=== PATIENT | female | born 1980 | race Caucasian/White ===

== ENCOUNTER 2024-03-22 18:12 | Emergency (ER) | payer OTHER, SELFPAY ==
[2024-03-22 18:14] VITALS: BP 161/106
--- NOTE | 2024-03-22 18:21 | ED.PDOC.TRB ---
ED Provider Triage
-
Patient seen by provider in Triage?: Seen in Triage
A medical screening examination has been initiated by a qualified medical provider. Based on the assessment performed at this time, it has been determined that an emergent medical condition may exist and the patient has been informed that further
medical evaluation and possible additional diagnostic testing may be needed.
HPI: This is a medical evaluation conducted in person to initiate diagnostic evaluation and provide initial therapeutics. Please see further documentation by the treating clinician.
GENERAL: Alert ,tearful
EYE: No visual abnormalities.
NECK: Trachea midline
ENT: No visible abnormalities.
LUNGS: No acute respiratory distress
NEUROLOGICAL: Alert and oriented
SKIN: no visible lesions.
MUSCULOSKELETAL: Moving extremities normally
PSYCH: Normal and appropriate interaction.
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 Here
she is mildly tachycardic. Mildly uncomfortable denies any significant diffuse abdominal pain. Plan for ultrasound and labs for further assessment.
[2024-03-22 18:30] LABS: % Basophils 0.5 % (0-2); % Eosinophils 2.6 % (0-6); % Immature Granulocytes 0.4 % (0-0.5); % Lymphocytes 27.5 % (20.5-51.1); Absolute Basophils 0.1 10^3/uL (0-0.2); Absolute Eosinophils 0.2 10^3/uL (0-0.7); Absolute Lymphocytes 2.6 10^3/uL (1.2-3.4); Absolute Monocytes 0.7 10^3/uL (0.1-0.6); Absolute Neutrophils 5.8 10^3/uL (1.4-6.5); Hematocrit 37.6 % (37.0-47.0); Hemoglobin 12.3 g/dL (12.0-16.0); Mean Corp Hgb Conc. 32.7 g/dL (33.0-37.0); Mean Corpuscular Hgb 26.9 pg (27.0-31.0); Mean Corpuscular Volume 82.3 fL (81.0-99.0); Mean Platelet Volume 11.9 fL (7.4-10.4); Nucleated Red Blood Cells % 0 %; Platelet Count 314 10^3/uL (130-400); Red Blood Cell Count 4.57 10^6/uL (4.20-5.40); Red Cell Dist. Width 16.3 % (11.5-14.5); White Blood Cell Count 9.4 10^3/uL (4.8-10.8)
[2024-03-22 18:50] LABS: ALT (SGPT) 11 U/L (0-35); AST (SGOT) 19 U/L (14-36); Albumin 4.3 g/dl (3.5-5.0); Alkaline Phosphatase 83 U/L (38-126); Blood Urea Nitrogen 7 mg/dl (7-17); Calcium 9.4 mg/dl (8.4-10.2); Carbon Dioxide 22 mmol/L (22-30); Glucose 100 mg/dl (70-99); Total Bilirubin 0.7 mg/dl (0.2-1.3); Total Protein 6.9 g/dl (6.3-8.2); eGFR > 60.00
[2024-03-22 19:10] LABS: Chloride 105 mmol/L (98-107); Potassium 3.8 mmol/L (3.5-5.1); Sodium 140 mmol/L (135-145)
[2024-03-22 21:34] VITALS: BP 129/84
--- NOTE | 2024-03-22 22:08 | ED.GENMED ---
History of Present Illness
General
Chief Complaint: Problems
Source: patient and family
Time Seen by Provider: 03/22/24 19:09
History of Present Illness
History of Present Illness:
This is a 43-year-old female who suspect she is about 9 weeks . Patient states that her last period was around January 12. Today she developed left lower quadrant abdominal pain and bleeding. She has had 10 previous pregnancies and has 10
previous children. This is her 11th . She has never had a miscarriage or ectopic. Patient states she has been concerned because of the pain and bleeding. Currently her pain is actually improved however. She states that when she emptied
her bladder after ultrasound her pain is improved. No lightheadedness or syncope.
Past History
Past History
ED Past Medical History: Other (Migraines, )
ED Past Surgical History: None
Social History
Tobacco: Non-smoker
Alcohol: None
Drug: None
Personal: Single
Living: with family
Employment: Not employed
Phy Exam
Physical Exam
Physical Exam:
CONSTITUTIONAL Vital signs reviewed, Patient alert and oriented to person, place and time. Well-appearing
HEAD atraumatic, normocephalic.
EYES eyelids normal to inspection, Extraocular muscles intact, Conjunctiva normal, Sclera normal.
NECK normal range of motion, Trachea midline, no jugular venous distention.
RESP no respiratory distress
Abdomen mild left lower quadrant tenderness, soft, no peritoneal findings, no rebound
UPPER EXTREMITY Gross Range of motion normal, gross motor strength normal
LOWER EXTREMITY Gross range of motion normal, Gross motor strength normal
NEURO Speech normal, No focal motor deficits include, Dimitry coma scale 15, Memory normal, Cranial Nerves intact to screening exam.
SKIN Skin warm, dry, and normal in color.
PSYCHIATRIC Patient oriented to person place and time, Normal affect.
Course
Orders/Labs/Results
Orders:
Orders
03/22/24 18:20
US 1st Trimester Urgent
Comment:
Reason For Exam: pain bleeding 9 weeks by dates
03/22/24 18:23
Blood Group&Type Urgent
Beta HCG Quantitative Urgent
Is this a screen?: No
Complete Blood Count/With Diff Urgent
Comprehensive Metabolic Panel Urgent
Abnormal Lab Results
03/22/24
18:23
MCH 26.9 L pg
(27.0-31.0)
MCHC 32.7 L g/dL
(33.0-37.0)
RDW 16.3 H %
(11.5-14.5)
MPV 11.9 H fL
(7.4-10.4)
Absolute Monos (auto) 0.7 H 10^3/uL
(0.1-0.6)
Glucose 100 H mg/dl
(70-99)
03/22/24 18:23
03/22/24 18:23
Vital Signs
Initial and Last Documented VS:
Initial Vital Signs
Pulse Resp BP Pulse Ox
97 18 161/106 100
03/22/24 18:14 03/22/24 18:14 03/22/24 18:14 03/22/24 18:14
Last Documented Vital Signs
Pulse Resp BP Pulse Ox
108 20 129/84 97
03/22/24 21:34 03/22/24 21:34 03/22/24 21:34 03/22/24 21:34
Information
Weeks gestation: N/A
Location: N/A
MDM/Problems Addressed
MDM/Problems Addressed:
Suspected miscarriage, rule out ectopic
*Radiology
Radiology exam reviewed: radiology read reviewed
*Pulse Oximetry
Patient hypoxic: no
*Critical Care Note
Total Time (30-74mins, 75-104mins- exclusive of procedures): Not Applicable
Data Reviewed
Source: patient and family
Prescriptions/Medications Considered But Not Given:
Consider methotrexate but suspect possible miscarriage.
Patient Management
Discussion with other providers: Signals Intelligence Analyst (Case was discussed with OB Dr. Liang)
Escalation/DeEscalation of care consider admission/obs:
43-year-old female presents with bleeding. This is her 11th . Shunt noted. Given her beta clearly a failed but question whether this is just early miscarriage versus ectopic. I suspect miscarriage but discussed with OB who
will arrange outpatient repeat beta. She certainly does not have a ruptured ectopic. She is well-appearing otherwise.
ED Attending Note
-
Portions of this chart may have been created with voice recognition software.� Occasional wrong word or��sound alike� substitutions may have occurred due to the inherent limitations of voice recognition software.
Discharge Plan
Departure
Patient Disposition: Home (Routine Discharge)
Date of Disposition: 03/22/24
Time of Disposition: 22:08
Patient with high blood pressure during this ER visit?: No
Discharge Problem:
failed , suspected miscarriage
Instructions: Miscarriage (DC)
Prescriptions:
No Action
PNV cmb#95-ferrous fumarate-FA [] 1 EACH tablet
1 ea PO DAILY
acetaminophen 325 mg Tablet
650 mg PO Q4HPRN PRN (Reason: mild pain) Qty: 0 0RF
sennosides-docusate sodium [Senna Plus] 8.6-50 mg Tablet
1 tab PO DAILYPRN PRN (Reason: constipation) Qty: 0 0RF
ibuprofen 600 mg Tablet
600 mg PO Q6HPRN PRN (Reason: cramps) Qty: 45 0RF
Referrals:
Mercedes Vasquez MD [Family Provider] -
Activity Restrictions/Additional Instructions:
I suspect you are having a miscarriage but you still need to be ruled out that it is a nonruptured ectopic. Please call your OB tomorrow to arrange repeat blood work on Wednesday. Return immediately for worsening pain, worsening bleeding,
lightheadedness, or any other concerns
Interventions
Interventions:
*Risk Screen - Suicide Last Done: 03/22/24 18:14
*Neglect/Abuse Screening Last Done: 03/22/24 18:14
*ED COVID-19 Vaccine History Last Done: 03/22/24 18:14
ED-Female Genitourinary Assessment Last Done: 03/22/24 19:23
Discharge Date and Time
Print Language: VIET[place]ESE
[2024-03-22 22:30] LABS: Urine Albumin Trace (Neg - Trace); Urine Bilirubin Negative (Negative); Urine Character Clear (Clear); Urine Color Pink; Urine Glucose Negative (Negative); Urine Ketone Negative (Negative); Urine Leukocyte 2+ (Negative); Urine Nitrite Negative (Negative); Urine Occult Blood 4+ (Negative); Urine Specific Gravity 1.005 (<1.030); Urine Urobilinogen Negative (Neg - 1+)
[2024-03-22 22:41] LABS: Urine Bacteria Few (Negative); Urine White Cell 0-2 /HPF (0-5)
[2024-03-22 22:42] LABS: Urine Red Blood Cell 90-100 /HPF (0-2)
== END 2024-03-22 22:34 | disposition home or self-care (01) ==
LOC: EMR 18:12
PROVIDERS: Physician Assistant; EMERGENCY PHYSICIAN Emergency Medicine; FAMILY PHYSICIAN Family Medicine
DX: O20.9 Hemorrhage in early pregnancy, unspecified (principal); Z3A.09 9 weeks gestation of pregnancy
CPT/HCPCS: 99284; 76801; 80053; 81003; 81015; 84702; 85025; 86900; 86901; 87086

== ENCOUNTER → 2024-03-24 16:07 | Outpatient (REF) | payer OTHER, SELFPAY ==
[2024-03-24 16:32] LABS: Hematocrit 37.9 % (37.0-47.0); Hemoglobin 12.1 g/dL (12.0-16.0)
== END ==
LOC: REG 16:07
PROVIDERS: ATTENDING PHYSICIAN Obstetrics & Gynecology; FAMILY PHYSICIAN Family Medicine
DX: O20.0 Threatened abortion (principal)
CPT/HCPCS: 36415; 84702; 85014; 85018

== ENCOUNTER → 2024-03-30 16:27 | Outpatient (REF) | payer OTHER, SELFPAY | LOC: RAD 16:27 | PROVIDERS: ATTENDING PHYSICIAN Obstetrics & Gynecology; FAMILY PHYSICIAN Family Medicine | DX: O00.90 Unspecified ectopic pregnancy without intrauterine pregnancy (principal) | CPT/HCPCS: 76801 ==

== ENCOUNTER → 2025-03-01 15:49 | Outpatient (REF) | payer OTHER, SELFPAY | LOC: PNTC 15:49 | PROVIDERS: ATTENDING PHYSICIAN Obstetrics & Gynecology | DX: O09.529 Supervision of elderly multigravida, unspecified trimester (principal) | CPT/HCPCS: 76816 ==

== ENCOUNTER → 2025-04-04 14:32 | Outpatient (REF) | payer OTHER, SELFPAY | LOC: PNTC 14:32 | PROVIDERS: ATTENDING PHYSICIAN Obstetrics & Gynecology | DX: O09.529 Supervision of elderly multigravida, unspecified trimester (principal) | CPT/HCPCS: 76816 ==

== ENCOUNTER 2025-05-03 19:03 | Observation (INO) | payer OTHER, SELFPAY ==
[2025-05-03 19:14] VITALS: BP 134/76; BMI 46.4
[2025-05-03 21:03] LABS: Hematocrit 41.2 % (37.0-47.0); Hemoglobin 14.4 g/dL (12.0-16.0); Mean Corp Hgb Conc. 35.0 g/dL (33.0-37.0); Mean Corpuscular Volume 89.0 fL (81.0-99.0); Platelet Count 252 10^3/uL (130-400); Red Cell Dist. Width 14.1 % (11.5-14.5)
== END 2025-05-04 13:00 | disposition home or self-care (01) ==
LOC: LDRP 19:03
PROVIDERS: ADMITTING PHYSICIAN Obstetrics & Gynecology; ATTENDING PHYSICIAN Obstetrics & Gynecology; PRIMARYCARE PHYSICIAN Family Medicine
DX: O36.8330 Maternal care for abnormalities of the fetal heart rate or rhythm, third trimester, not applicable or unspecified (principal); O09.523 Supervision of elderly multigravida, third trimester; Z3A.35 35 weeks gestation of pregnancy; O99.213 Obesity complicating pregnancy, third trimester; O09.43 Supervision of pregnancy with grand multiparity, third trimester; Z36.89 Encounter for other specified antenatal screening; Z87.820 Personal history of traumatic brain injury
CPT/HCPCS: 76818; 76819; 85027; 86850; 86900; 86901; G0378

== ENCOUNTER → 2025-05-10 16:36 | Outpatient (REF) | payer OTHER, SELFPAY | LOC: PNTC 16:36 | PROVIDERS: ATTENDING PHYSICIAN Obstetrics & Gynecology | DX: O09.523 Supervision of elderly multigravida, third trimester (principal); O99.213 Obesity complicating pregnancy, third trimester; O09.43 Supervision of pregnancy with grand multiparity, third trimester | CPT/HCPCS: 59025 ==

== ENCOUNTER → 2025-05-17 16:49 | Outpatient (REF) | payer OTHER, SELFPAY | LOC: PNTC 16:49 | PROVIDERS: ATTENDING PHYSICIAN Obstetrics & Gynecology; PRIMARYCARE PHYSICIAN Family Medicine | DX: O09.523 Supervision of elderly multigravida, third trimester (principal); O99.213 Obesity complicating pregnancy, third trimester; O09.43 Supervision of pregnancy with grand multiparity, third trimester; O36.8330 Maternal care for abnormalities of the fetal heart rate or rhythm, third trimester, not applicable or unspecified | CPT/HCPCS: 59025 ==

== ENCOUNTER → 2025-05-24 16:28 | Outpatient (REF) | payer OTHER, SELFPAY | LOC: PNTC 16:28 | PROVIDERS: ATTENDING PHYSICIAN Student in an Organized Health Care Education/Training Program; PRIMARYCARE PHYSICIAN Family Medicine | DX: O09.523 Supervision of elderly multigravida, third trimester (principal); O99.213 Obesity complicating pregnancy, third trimester; O09.43 Supervision of pregnancy with grand multiparity, third trimester | CPT/HCPCS: 59025 ==

== ENCOUNTER → 2025-05-31 16:45 | Outpatient (REF) | payer OTHER, SELFPAY | LOC: PNTC 16:45 | PROVIDERS: ATTENDING PHYSICIAN Obstetrics & Gynecology; PRIMARYCARE PHYSICIAN Family Medicine | DX: O09.523 Supervision of elderly multigravida, third trimester (principal); O99.213 Obesity complicating pregnancy, third trimester; O09.43 Supervision of pregnancy with grand multiparity, third trimester | CPT/HCPCS: 59025 ==

== ENCOUNTER 2025-06-01 06:55 | Inpatient (IN) | payer OTHER, SELFPAY ==
[2025-06-01 07:11] VITALS: BP 132/85; BMI 46.4
[2025-06-01 07:54] LABS: Hematocrit 40.5 % (37.0-47.0); Hemoglobin 14.0 g/dL (12.0-16.0); Mean Corp Hgb Conc. 34.6 g/dL (33.0-37.0); Mean Corpuscular Volume 89.8 fL (81.0-99.0); Platelet Count 223 10^3/uL (130-400); Red Cell Dist. Width 13.7 % (11.5-14.5)
[2025-06-01] MEDS: LR 1000 IV ×2 (07:57→09:10)
[2025-06-01] MEDS: TYLENOL 975 MG PO (08:09)
[2025-06-01] MEDS: BICITRA 30 ML PO (08:10)
[2025-06-01] MEDS: ANCEF 15 MG IV (11:52)
[2025-06-01] MEDS: TORADOL 15 MG IV (14:38)
[2025-06-01] MEDS: PITOCIN 30 UNITS/NSS 500 ML IV (16:24)
[2025-06-01] MEDS: COLACE 100 MG PO (20:34)
[2025-06-01] MEDS: TYLENOL 650 MG PO (20:34)
[2025-06-02] MEDS: MOTRIN 600 MG PO ×3 (01:48→15:34)
[2025-06-02] MEDS: TYLENOL 650 MG PO ×2 (04:00→17:06)
[2025-06-02 04:27] LABS: Hematocrit 34.3 % (37.0-47.0); Hemoglobin 11.1 g/dL (12.0-16.0); Mean Corp Hgb Conc. 32.4 g/dL (33.0-37.0); Mean Corpuscular Volume 94.8 fL (81.0-99.0); Platelet Count 172 10^3/uL (130-400); Red Cell Dist. Width 13.9 % (11.5-14.5)
[2025-06-02] MEDS: COLACE 100 MG PO ×2 (08:08→20:41)
[2025-06-02] MEDS: PRENATAL PLUS 1 TABLET PO (08:08)
[2025-06-03] MEDS: TYLENOL 650 MG PO ×3 (00:29→11:48)
[2025-06-03] MEDS: MOTRIN 600 MG PO ×3 (00:30→11:48)
--- NOTE | 2025-06-03 06:53 | W.PN.ANS.POP ---
Anesthesia Post Operative
- Anesthesia Post Op Note
Vital Signs Stable-See Nursing Note: Yes
Airway Patent: Yes
Adequate Pain Control: Yes
Change in Mental Status: No
Current Postoperative Nausea & Vomiting: No
Anesthesia Complications: No
General Anesthetic Recall: No
Unplanned Admission: No
Post Op Hydration Adequate: Yes
[2025-06-03] MEDS: PRENATAL PLUS 1 TABLET PO (08:01)
[2025-06-03] MEDS: COLACE 100 MG PO (08:01)
--- NOTE | 2025-06-03 08:20 | W.DS.TRANS ---
DC Summary - Respiratory Scientist
-
Discharge Instructions:
Discharge Diagnosis/Procedures rcs
Instructions:
Stand-Alone Forms: LDRP Delivery
Changes to Home Medications: No
Discharge Medications:
DC Medications w/original date entered in [facility]
vit no.95-ferrous fumarate 28 mg-folic acid 800 mcg tablet () 1 ea PO DAILY 08/15/21
ibuprofen 600 mg tablet 600 mg PO Q6HPRN PRN cramps #90 tabs 06/03/25
Home Medication Changes
Pending Results: No
Total time spent discharging patient (in min): 15
[2025-06-05 11:44] LABS: Syphilis/T. pallidum Ab Reflex Negative (Negative)
== END 2025-06-03 13:50 | disposition home or self-care (01) | DRG 788 ==
LOC: LDRP 06:55
PROVIDERS: ADMITTING PHYSICIAN Obstetrics & Gynecology
PROC: 10D00Z1 Extraction of Products of Conception, Low, Open Approach (ICD-10-PCS; 2025-06-01)
DX: O32.8XX0 Maternal care for other malpresentation of fetus, not applicable or unspecified (principal); Z3A.39 39 weeks gestation of pregnancy; Z37.0 Single live birth; O99.214 Obesity complicating childbirth; E66.813 Obesity, class 3; O99.344 Other mental disorders complicating childbirth; F32.A Depression, unspecified; F41.9 Anxiety disorder, unspecified; O34.211 Maternal care for low transverse scar from previous cesarean delivery; Z87.820 Personal history of traumatic brain injury
CPT/HCPCS: 85027; 86780; 86850; 86900; 86901; 86920; 88307